=== PATIENT | female | born 1990 | race Caucasian/White ===

== ENCOUNTER → 2020-09-10 | Outpatient (CLI) | payer OTHER ==
[~2020-09-10] MED LIST: ASPI81CH PO; CALCAVITDA PO; CYCL10 PO; DOCU100 PO; HYDACE5 PO; IBUP800 PO; META800 PO; NAPR500 PO; OXYACE5T PO; SLOW RELEASE47.5 MG PO; Verotin-Gr Cap1 EACH PO
== END | disposition home or self-care (01) ==
LOC: LAB SHORT 15:04 → LAB 15:04
DX: R10.9 Unspecified abdominal pain (principal)
CPT/HCPCS: 87077; 87086; 87186

== ENCOUNTER → 2020-11-29 | Outpatient (CLI) | payer OTHER ==
[2020-12-01 17:45] LABS: CORONAVIRUS (COVID19) CSH-NRL Negative (Negative)
== END | disposition home or self-care (01) ==
LOC: LAB SHORT 15:45 → LAB 15:45
PROVIDERS: Physician Assistant
DX: B34.9 Viral infection, unspecified (principal); Z20.822 Contact with and (suspected) exposure to COVID-19
CPT/HCPCS: U0003